=== PATIENT | female | born 1975 | race Caucasian/White ===

== ENCOUNTER 2018-04-15 12:05 | Emergency (ER) | payer OTHER, BC ==
[2018-04-15] MEDS ORDERED: Acetaminophen/HYDROcodone 325-5 MG Tab PO ONE (12:30)
--- NOTE | 2018-04-15 12:37 | EDM.PDOC ---
ED HPI GENERAL MEDICAL PROBLEM - General Chief Complaint: Upper Extremity Injury/Pain Stated Complaint: LT SHOULDER INJURY Time Seen by Provider: 04/15/18 12:21 Source of Information: Reports: Patient History Limitations: Reports: No Limitations - History of Present Illness INITIAL COMMENTS - FREE TEXT/NARRATIVE: Patient is a 42-year-old female presents ED complaining of left shoulder pain. Patient was at work at [employer] and fell after tripping on a pallet. Patient states she caught herself by falling on her elbows. In the process of falling she injured her left shoulder. Has limited range of motion secondary to pain. Pain is generalized. Patient feels more comfortable with holding her arm against her chest. There is no sensorimotor deficits distally. No prior injury to the left shoulder. Denies hitting her head, LOC, neck pain, back pain, or any additional complaints. She denies being . She has a history of migraines and is on propranolol and Effexor. Pain is currently a 10 out of 10 although the patient is on her phone texting. 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 ED EXAM, GENERAL - Physical Exam Exam: See Below Exam Limited By: No Limitations General Appearance: Alert, WD/WN, Mild Distress Eye Exam: Bilateral Eye: Normal Inspection, PERRL Ears: Hearing Grossly Normal Nose: Normal Inspection Throat/Mouth: Normal Voice, No Airway Compromise Head: Atraumatic, Normocephalic Neck: Normal Inspection, Supple, Non-Tender, Full Range of Motion Respiratory/Chest: No Respiratory Distress, Lungs Clear, Normal Breath Sounds, No Accessory Muscle Use, Chest Non-Tender Cardiovascular: Normal Peripheral Pulses, Regular Rate, Rhythm, No Murmur Peripheral Pulses: 4+: Radial (L) GI/Abdominal: Normal Bowel Sounds, Soft, Non-Tender, No Organomegaly, No Distention Back Exam: Normal Inspection, Full Range of Motion. No: Paraspinal Tenderness, Vertebral Tenderness Extremities: Normal Inspection, Arm Pain, Limited Range of Motion, Other (Point of maximal pain is located to the lateral aspect of the shoulder proximal 1/3. No bruising, swelling, bony abnormalities noted. Decreased AROM and PROM 2nd to pain. Exam limited due to pain. No pain with palpation of the left clavicle, a/ c joint, elbow, forearm, wrist, hand, and fingers. ) Neurological: Alert, Oriented, CN II-XII Intact, Normal Cognition, No Motor/ Sensory Deficits Psychiatric: Normal Affect, Normal Mood Skin Exam: Warm, Dry, Intact, Normal Color Course - Vital Signs Last Recorded V/S: Last Vital Signs Temp 98.1 F 04/15/18 12:29 Pulse 87 04/15/18 12:29 Resp 20 04/15/18 12:29 BP 136/90 04/15/18 12:29 Pulse Ox 100 04/15/18 12:29 - Orders/Labs/Meds Orders: Active Orders 24 hr Category Date Time Status Shoulder Comp Lt [CR] Stat Exams 04/15/18 12:30 Ordered Meds: Medications Discontinued Medications Generic Name Dose Route Start Last Admin Trade Name Freq PRN Reason Stop Dose Admin Hydrocodone Bitart/Acetaminophen 1 tab 04/15/18 12:30 04/15/18 12:35 [place] 325-5 Mg PO 04/15/18 12:31 1 tab ONETIME ONE Administration - Re-Assessments/Exams Free Text/Narrative Re-Assessment/Exam: Ordered norco 5-325 mg X1 PO. Ordered xray of the left shoulder. Suspect shoulder strain and/or possibility of rotator cuff injury. Thus if x-rays come back will immobilze and have patient followup with ortho for reevaluation. patient was made aware she will need to see occupational med provider for modification of job duties. X-ray of the left shoulder reviewed with Dr. Aviles with no acute bony abnormalities noted. Suspect cause of injury is either a shoulder strain and/or possible rotator cuff tear. Will place patient in a arm sling. Symptomatic care is appropriate including: ice, tylenol/motrin. She'll follow up with occupational med and/or occupational med for further evaluation. Departure - Departure Time of Disposition: 13:38 Disposition: Home, Self-Care 01 Condition: Good Clinical Impression: Strain of left shoulder Qualifiers: Encounter type: initial encounter Qualified Code(s): S46.912A - Strain of unspecified muscle, fascia and tendon at shoulder and upper arm level, left arm , initial encounter Rotator cuff injury Qualifiers: Encounter type: initial encounter Laterality: left Qualified Code(s): S46.002A - Unspecified injury of muscle(s) and tendon(s) of the rotator cuff of left shoulder, initial encounter - Discharge Information Instructions: Shoulder Pain, [id number], Muscle Strain Referrals: Ike Herzog PA-C [Primary Care Provider] - Forms: ED Department Discharge, ED Return to Work/School Form Additional Instructions: Wear the arm sling for the next 3 days. Take off to ice, bath, and sleep. Perform circular movements as demonstrated at least three times a day. Refrain from any activities that cause worsening pain. Apply ice to the affected area 3 to 4 times daily, 30 minutes in duration, do not apply directly on the skin. Take ibuprofen and tylenol as needed in alternating fashion for pain. See a occupational med provider for modification job duties. Suggest making an appt with orthopedic surgeon of your choice to be evaluated in 10 to 14 days if pain persists. Call and make an appt. No driving today since receiving a sedative medication. Return to the E.D. for any new or worsening symptoms. - My Orders Last 24 Hours: My Active Orders 04/15/18 12:30 Shoulder Comp Lt [CR] Stat - Assessment/Plan Last 24 Hours: My Active Orders 04/15/18 12:30 Shoulder Comp Lt [CR] Stat
--- NOTE | 2018-04-16 08:23 | CR ---
Left shoulder: Three views of the left shoulder were obtained. Comparison: No prior shoulder exam. Glenohumeral joint appears normal. Acromioclavicular joint appears normal. A lucent line is identified the base of the greater tuberosity. Difficult to exclude a nondisplaced fracture. No additional bony abnormality is seen. Impression: 1. Lucency at the base of the greater tuberosity. Difficult to exclude a nondisplaced fracture. CT study would confirm if clinically needed. Diagnostic code #3
== END 2018-04-15 13:50 | disposition home or self-care (01) ==
LOC: JD.ED 12:05
DX: S46.012A Strain of muscle(s) and tendon(s) of the rotator cuff of left shoulder, initial encounter (principal); Z79.899 Other long term (current) drug therapy; W01.198A Fall on same level from slipping, tripping and stumbling with subsequent striking against other object, initial encounter; Y99.0 Civilian activity done for income or pay
CPT/HCPCS: 73030; 99283; A9270

== ENCOUNTER 2020-03-11 10:40 | Emergency (ER) | payer BC, OTHER ==
[2020-03-11] MEDS ORDERED: Famotidine 20 MG Tab PO ONE (11:17)
[2020-03-11] MEDS ORDERED: predniSONE 20 MG Tab PO ONE (11:17)
--- NOTE | 2020-03-11 11:24 | EDM.PDOC ---
ED HPI GENERAL MEDICAL PROBLEM - General Chief Complaint: Allergic Reaction Stated Complaint: SKIN COMPLAINT (HIVES ON BODY,SWOLLEN FACE) Time Seen by Provider: 03/11/20 11:08 Source of Information: Reports: Patient History Limitations: Reports: No Limitations - History of Present Illness INITIAL COMMENTS - FREE TEXT/NARRATIVE: Patient is a 44-year-old female who presents with complaints of hives. She states yesterday she developed itching and welts on her forehead. Last night it spread out into her neck and chest. She has no shortness of breath or feeling of swelling in her throat. She has been taking Benadryl 25 mg with some relief. She has seasonal allergies, but has never had hives with them in the past. She has not changed cosmetics or detergents recently. 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 pt states she hasnt had a period in 13 months since 03/11 Neurological History: Reports: Migraines Psychiatric History: Reports: Anxiety, Depression Endocrine/Metabolic History: Reports: Osteopenia Social & Family History - Tobacco Use Smoking Status *Q: Never Smoker - Caffeine Use Caffeine Use: Reports: Coffee - Recreational Drug Use Recreational Drug Use: No ED ROS ALLERGIC REACTION - Review of Systems Review Of Systems: See Below Constitutional: Reports: No Symptoms. Denies: Fever, Chills HEENT: Reports: No Symptoms. Denies: Throat Pain, Throat Swelling Respiratory: Reports: No Symptoms. Denies: Shortness of Breath, Wheezing, Cough Cardiovascular: Reports: No Symptoms Endocrine: Reports: No Symptoms GI/Abdominal: Reports: No Symptoms : Reports: No Symptoms Musculoskeletal: Reports: No Symptoms Skin: Reports: Pruritis, Rash Neurological: Reports: No Symptoms Psychiatric: Reports: No Symptoms Hematologic/Lymphatic: Reports: No Symptoms Immunologic: Reports: No Symptoms ED EXAM GENERAL NO PERIP PULSE - Physical Exam Exam: See Below Exam Limited By: No Limitations General Appearance: Alert, WD/WN, No Apparent Distress Eye Exam: Bilateral Eye: Other (Mild edema of the upper eyelids) Respiratory/Chest: No Respiratory Distress, Lungs Clear, Normal Breath Sounds, No Accessory Muscle Use, Chest Non-Tender Cardiovascular: Normal Peripheral Pulses, Regular Rate, Rhythm, No Edema, No Gallop, No JVD, No Murmur, No Rub Skin Exam: Warm, Dry, Intact, Normal Color, Other (Very faint redness to forehead and cheeks. No obvious rash to neck or chest.) Lymphatic: No Adenopathy Course - Vital Signs Last Recorded V/S: Last Vital Signs Temp 97.6 F 03/11/20 10:48 Pulse 88 03/11/20 10:48 Resp 18 03/11/20 10:48 BP 133/86 03/11/20 10:48 Pulse Ox 97 03/11/20 10:48 - Orders/Labs/Meds Orders: Active Orders 24 hr Category Date Time Status Famotidine [Pepcid] Med 03/11/20 11:17 Once 20 mg PO ONETIME ONE predniSONE Med 03/11/20 11:17 Once 20 mg PO ONETIME ONE Departure - Departure Time of Disposition: 11:23 Disposition: Home, Self-Care 01 Condition: Good Clinical Impression: Rash due to allergy - Discharge Information *PRESCRIPTION DRUG MONITORING PROGRAM REVIEWED*: No *COPY OF PRESCRIPTION DRUG MONITORING REPORT IN PATIENT ROBBIE: No Prescriptions: predniSONE [Prednisone] 20 mg PO BID 5 Days #10 tablet Instructions: Hives, Allergies, Adult, [id number] Referrals: Ike Herzog PA-C [Primary Care Provider] - Additional Instructions: You were seen in the emergency department today for a rash to your face and neck. It is likely that you are having allergic reaction, however the source of this allergy is unknown. While in the ER, you received a dose of prednisone and Pepcid. A prescription for prednisone twice daily for 5 days has been sent to [place] [facility]. Take this medication as prescribed. In addition, I would recommend that you take Pepcid 20 mg twice daily for the next 5 days. Continue to use Benadryl 25 to 50 mg every 4-6 hours as needed for rash and itching. If you should experience any worsening symptoms such as a feeling of swelling or itching in your throat or difficulty breathing, please return to the emergency department. Sepsis Event Note - Evaluation Sepsis Screening Result: No Definite Risk - Focused Exam Vital Signs: Vital Signs Temp Pulse Resp BP Pulse Ox 03/11/20 10:48 97.6 F 88 18 133/86 97 Date Exam was Performed: 03/11/20 Time Exam was Performed: 11:18 - My Orders Last 24 Hours: My Active Orders 03/11/20 11:17 Famotidine [Pepcid] 20 mg PO ONETIME ONE predniSONE 20 mg PO ONETIME ONE - Assessment/Plan Last 24 Hours: My Active Orders 03/11/20 11:17 Famotidine [Pepcid] 20 mg PO ONETIME ONE predniSONE 20 mg PO ONETIME ONE
== END 2020-03-11 11:45 | disposition home or self-care (01) ==
LOC: JD.ED 10:40
DX: T78.40XA Allergy, unspecified, initial encounter (principal); G43.909 Migraine, unspecified, not intractable, without status migrainosus; F41.9 Anxiety disorder, unspecified; F32.9 Major depressive disorder, single episode, unspecified; Z79.899 Other long term (current) drug therapy
CPT/HCPCS: 99282; A9270; J7512; 99283

== ENCOUNTER 2021-09-08 14:27 | Emergency (ER) | payer BC, OTHER ==
--- NOTE | 2021-09-08 16:20 | CR ---
Addendum: Wrist exam was a right wrist and not a left wrist as stated in the below report. --- Addendum1 above dictated on [09/09/2021 13:28] by [Gordon Bonilla, Nelson Cobb] --- --- Addendum1 above signed on [09/09/2021 13:59] by [Gordon Bonilla, Nelson Cobb] --- --- Original report below dictated on [09/08/2021 16:10] by [Gordon Bonilla, Nelson Cobb] --- --- Original report below signed on [09/08/2021 16:17] by [Gordon Bonilla, Nelson Cobb] --- Left wrist: 3 views of the left wrist were obtained. Comparison: No prior wrist study is available. Comminuted distal radial fracture is noted. Articular extension is seen. There is displacement being seen of the carpal bones and hand following the anteriorly displaced fragment. Fracture is noted within the ulnar styloid process. Degenerative change is noted within the CMC joint of the thumb. Diffuse soft tissue swelling is noted. Impression: 1. Comminuted distal radial fracture with articular extension. Carpal bones follow an anteriorly displaced fragment. 2. Fracture within the ulnar styloid process. Soft tissue swelling. 3. Mild degenerative change. Diagnostic code #3 --- Addendum1 signed ---
[2021-09-08] MEDS ORDERED: HYDROmorphone 1 MG/ML Syringe IM ONE (16:21)
--- NOTE | 2021-09-08 16:49 | EDM.PDOC ---
ED HPI GENERAL MEDICAL PROBLEM - General Chief Complaint: Upper Extremity Injury/Pain Stated Complaint: ARM INJURY Time Seen by Provider: 09/08/21 15:40 Source of Information: Reports: Patient, RN Notes Reviewed History Limitations: Reports: No Limitations - History of Present Illness INITIAL COMMENTS - FREE TEXT/NARRATIVE: Patient is a 46-year-old female presenting to the emergency department with complaints of pain swelling to her right wrist. Patient reports that she tripped over a toy and landed on her wrist. She reports that she heard a crack and is having significant discomfort. She has had previous fracture to this wrist as a child. She has not taken anything for pain. Left Wrist Pain Score (Numeric/FACES): 10 - Related Data Allergies Allergy/AdvReac Type Severity Reaction Status Date / Time No Known Allergies Allergy Verified 09/08/21 15:32 Home Meds: Home Meds Propranolol [Inderal] 120 mg PO DAILY 04/15/18 [History] Venlafaxine [Effexor] 225 mg PO DAILY 04/15/18 [History] SUMAtriptan [Imitrex] 0 mg PO ASDIRECTED PRN 03/11/20 [History] predniSONE [Prednisone] 20 mg PO BID 5 Days #10 tablet 03/11/20 [Rx] Hydrocodone/Acetaminophen [Hydrocodone-Acetamin 5-325 mg] 1 each PO Q4H PRN #12 tablet 09/08/21 [Rx] Past Medical History Respiratory History: Reports: Asthma 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 pt states she hasnt had a period in 13 months since 03/11 Musculoskeletal History: Reports: Osteoporosis Other Musculoskeletal History: osteopenia, broke tibial plateau june 08 Neurological History: Reports: Migraines Psychiatric History: Reports: Anxiety, Depression Endocrine/Metabolic History: Reports: Osteopenia Social & Family History - Tobacco Use Tobacco Use Status *Q: Never Tobacco User - Caffeine Use Caffeine Use: Reports: Coffee - Recreational Drug Use Recreational Drug Use: No Review of Systems - Review of Systems Review Of Systems: Comprehensive ROS is negative, except as noted in HPI. ED EXAM, GENERAL - Physical Exam Exam: See Below General Appearance: Alert, WD/WN, No Apparent Distress Respiratory/Chest: No Respiratory Distress, Lungs Clear, Normal Breath Sounds, No Accessory Muscle Use, Chest Non-Tender Cardiovascular: Normal Peripheral Pulses, Regular Rate, Rhythm, No Edema, No Gallop, No JVD, No Murmur, No Rub Extremities: Other (Swelling and obvious deformity to the right wrist. CMS intact.) Neurological: Alert, Oriented, CN II-XII Intact, Normal Cognition, Normal Gait, Normal Reflexes, No Motor/Sensory Deficits Psychiatric: Normal Affect, Normal Mood ED TRAUMA EXTREMITY PROCEDURES - Splinting Right Upper Extremity Splint Site: right wrist Pre-Procedure NV Status: Normal Post-Procedure NV Status: Normal Splint Material: Fiberglass Splint Design: Volar Applied & Form Fitted By: Provider Provider Post-Splint Application NV Check: NV Status Normal Complications: No Course - Vital Signs Last Recorded V/S: Last Vital Signs Temp 98.8 F 09/08/21 15:28 Pulse 86 09/08/21 15:28 Resp 100 H 09/08/21 15:28 BP 138/98 H 09/08/21 15:28 Pulse Ox 100 09/08/21 15:28 - Orders/Labs/Meds Meds: Medications Discontinued Medications Generic Name Dose Route Start Last Admin Trade Name Zhanna PRN Reason Stop Dose Admin Hydromorphone HCl 1 mg 09/08/21 16:21 09/08/21 16:37 Hydromorphone 1 Mg/Ml Syringe IM 09/08/21 16:22 1 mg ONETIME ONE Administration - Re-Assessments/Exams Free Text/Narrative Re-Assessment/Exam: Patient is a 46-year-old female presenting to the emergency department with complaints of pain and swelling to her right wrist. Wrist x-ray was completed using standing order in triage and shows comminuted fracture of the distal radius as well as ulnar styloid fracture. There is obvious external deformity with no open areas to the right wrist. CMS is intact distal to the injury. Case was discussed with orthopedist, Dr. Mascorro. He recommend that we splint without reduction at this time as this will require surgical repair. She should follow-up with him in clinic. I have ordered Dilaudid 1 mg IV to be given prior to splinting. 09/08/21 17:04 Splint applied to right wrist extending past the elbow. See procedure notes. Patient tolerated well. I will send prescription for hydrocodone with Tylenol and send arm sling with patient. She should call Dr. Mascorro's office tomorrow to set up a follow-up visit. Discharge instructions as documented. Departure - Departure Time of Disposition: 17:06 Disposition: Home, Self-Care 01 Condition: Good Clinical Impression: Closed fracture of radius and ulna Qualifiers: Encounter type: initial encounter Laterality: right Qualified Code(s): S52.91XA - Unspecified fracture of right forearm, initial encounter for closed fracture - Discharge Information *PRESCRIPTION DRUG MONITORING PROGRAM REVIEWED*: No *COPY OF PRESCRIPTION DRUG MONITORING REPORT IN PATIENT ROBBIE: No Prescriptions: Hydrocodone/Acetaminophen [Hydrocodone-Acetamin 5-325 mg] 1 each PO Q4H PRN #12 tablet PRN Reason: Pain Instructions: Wrist Fracture Treated With Immobilization, [id number] Referrals: Ike Herzog PA-C [Primary Care Provider] - Darryl Mascorro MD [Physician] - Forms: ED Department Discharge Additional Instructions: Take [id number] Tylenol routinely for pain. For pain not relieved by this, you may take 1 hydrocodone with Tylenol. Ensure that you are not taking more than 4000 mg of Tylenol from all sources in a 24-hour period. Ice and elevate your extremity while at rest for the next few days. Wear the sling when you are up and moving. Call Dr. Mascorro's office tomorrow morning to set up a follow-up visit. Return to ER for any new or worsening symptoms of concern. Sepsis Event Note (ED) - Evaluation Sepsis Screening Result: No Definite Risk
== END 2021-09-08 17:19 | disposition home or self-care (01) ==
LOC: JD.ED 14:27
DX: S52.91XA Unspecified fracture of right forearm, initial encounter for closed fracture (principal); W01.0XXA Fall on same level from slipping, tripping and stumbling without subsequent striking against object, initial encounter
CPT/HCPCS: 29125; 73110; 96372; 99283; J1170

== ENCOUNTER 2021-09-17 10:20 | Day surgery (SDC) | payer BC, OTHER ==
[~2021-09-17 10:20] MED LIST: Lactated Ringers 1,000 ML IV SCH; Lidocaine 1%/Sod Bicarbonate in NS 8.4% 1 ML Syringe IDERM PRN; Sodium Chloride 0.9% 10 ML Syringe FLUSH PRN
--- NOTE | 2021-09-17 10:56 | PCM.PREANE ---
Preanesthetic Assessment - Procedure Proposed Procedure: Right ORIF right distal radius - Anesthesia/Transfusion/Family Hx Anesthesia History: Prior Anesthesia Without Reaction Family History of Anesthesia Reaction: No Transfusion History: No Prior Transfusion(s) Intubation History: Unknown - Review of Systems General: No Symptoms Pulmonary: No Symptoms Cardiovascular: No Symptoms Gastrointestinal: No Symptoms Neurological: Headache (Migraines), Tingling (bilateral fingers) Other: Reports: Easy Bruising, Depression, Anxiety - Physical Assessment NPO Status Date: 09/16/21 NPO Status Time: 22:00 Vital Signs: BP 119/89 HR 88 97.4 RR 16 95% RA Height: 1.65 m Weight: 85.3 kg ASA Class: 2 Mental Status: Alert & Oriented x3 Airway Class: Mallampati = 2 Dentition: Reports: Normal Dentition, Caries Thyro-Mental Finger Breadths: 3 Mouth Opening Finger Breadths: 3 ROM/Head Extension: Full Lungs: Clear to Auscultation, Normal Respiratory Effort Cardiovascular: Regular Rate, Regular Rhythm, No Murmurs - Allergies Allergies/Adverse Reactions: Allergies Allergy/AdvReac Type Severity Reaction Status Date / Time No Known Allergies Allergy Verified 09/08/21 15:32 - Anesthesia Plan Beta Paul: Propranolol (Patient takes for migraines) Med Last Dose Date: 09/16/21 Med Last Dose Time: 07:30 - Acknowledgements Anesthesia Type Planned: General Anesthesia Pt an Appropriate Candidate for the Planned Anesthesia: Yes Alternatives and Risks of Anesthesia Discussed w Pt/Guardian: Yes Pt/Guardian Understands and Agrees with Anesthesia Plan: Yes PreAnesthesia Questionnaire HEENT History: Reports: Allergic Rhinitis, Impaired Vision Cardiovascular History: Reports: None Respiratory History: Reports: Asthma (Childhood asthma, patient has not had any issues since childhood) Gastrointestinal History: Reports: None Genitourinary History: Reports: None 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 pt states she hasnt had a period in 13 months since 03/11 Musculoskeletal History: Reports: Osteoporosis Other Musculoskeletal History: osteopenia, broke tibial plateau june 08 Neurological History: Reports: Migraines Psychiatric History: Reports: Anxiety, Depression Endocrine/Metabolic History: Reports: Osteopenia, Osteoporosis Hematologic History: Reports: None Immunologic History: Reports: None Oncologic (Cancer) History: Reports: None Dermatologic History: Reports: None - Past Surgical History Female Surgical History: Reports: Other (See Below) (Uterine ablation) - SUBSTANCE USE Tobacco Use Status *Q: Never Tobacco User Tobacco Use Within Last Twelve Months: No Second Hand Smoke Exposure: No Days Per Week of Alcohol Use: 0 Number of Drinks Per Day: 0 Total Drinks Per Week: 0 Recreational Drug Use History: No - HOME MEDS Home Medications: Home Meds Propranolol [Inderal] 120 mg PO DAILY 04/15/18 [History] Venlafaxine [Effexor] 225 mg PO DAILY 04/15/18 [History] SUMAtriptan [Imitrex] 0 mg PO ASDIRECTED PRN 03/11/20 [History] predniSONE [Prednisone] 20 mg PO BID 5 Days #10 tablet 03/11/20 [Rx] Hydrocodone/Acetaminophen [HYDROcodone-Acetaminophen 5-325 MG] 1 each PO Q4H PRN #12 tablet 09/08/21 [Rx] Hydrocodone/Acetaminophen [HYDROcodone-Acetaminophen 5-325 MG] 1 - 2 each PO Q4H PRN #30 tablet 09/17/21 [Rx] - CURRENT (IN HOUSE) MEDS Current Meds: Current Medications Discontinued Medications Lactated Ringer's (Ringers, Lactated) 1,000 mls @ 125 mls/hr IV ASDIRECTED OH Lidocaine/Sodium Bicarbonate (Lidocaine 1%/Sod Bicarbonate In Ns 8.4% 1 Ml Syringe) 0.25 ml IDERM ONETIME PRN PRN Reason: Prior to IV Start Sodium Chloride (Sodium Chloride 0.9% 10 Ml Syringe) 10 ml FLUSH ASDIRECTED PRN PRN Reason: Keep Vein Open
[2021-09-17] MEDS: Lactated Ringers 1,000 ML IV SCH ×2 (11:00→14:24)
[2021-09-17] MEDS ORDERED: Bupivacaine 0.25% 10 ML SDV ONE (11:11)
[2021-09-17] MEDS ORDERED: fentaNYL 250 MCG/5 ML SDV ONE (11:22)
[2021-09-17] MEDS ORDERED: Propofol 200 MG/20 ML SDV ONE ×3 (11:22→12:09)
[2021-09-17] MEDS ORDERED: Midazolam 1 MG/ML 2 ML SDV ONE (11:22)
[2021-09-17] MEDS ORDERED: ceFAZolin 1 GM Vial ONE (11:24)
[2021-09-17] MEDS ORDERED: Sodium Chloride 0.9% 10 ML Syringe FLUSH PRN (11:25)
[2021-09-17] MEDS ORDERED: Lidocaine 1%/Sod Bicarbonate in NS 8.4% 1 ML Syringe IDERM PRN (11:25)
[2021-09-17] MEDS ORDERED: Dexamethasone 4 MG/ML 5 ML MDV ONE (12:10)
[2021-09-17] MEDS ORDERED: fentaNYL 100 MCG/2 ML SDV IVPUSH PRN (12:25)
[2021-09-17] MEDS ORDERED: Ondansetron 4 MG/2 ML SDV IVPUSH PRN (12:25)
[2021-09-17] MEDS ORDERED: Ketamine 500 mg/10 ML MDV ONE (12:27)
[2021-09-17] MEDS ORDERED: HYDROmorphone 0.5 MG/0.5 ML Syringe ONE (12:30)
[2021-09-17] MEDS ORDERED: Lactated Ringers 1,000 ML ONE (12:38)
[2021-09-17] MEDS ORDERED: Ondansetron 4 MG/2 ML SDV ONE (13:15)
--- NOTE | 2021-09-17 13:44 | PCM.POSTAN ---
POST ANESTHESIA ASSESSMENT - MENTAL STATUS Mental Status: Somnolent - VITAL SIGNS Vital Signs: Last Vital Signs Temp 97.3 F 09/17/21 10:30 Pulse 88 09/17/21 10:30 Resp 16 09/17/21 10:30 BP 119/89 09/17/21 10:30 Pulse Ox 95 09/17/21 10:30 1338 93 10 98.3 135/75 97% - RESPIRATORY Respiratory Status: Respiratory Rate WNL, Airway Patent, O2 Saturation Stable, Supplemental Oxygen - CARDIOVASCULAR CV Status: Pulse Rate WNL - GASTROINTESTINAL GI Status: No Symptoms - PAIN Pain Score: 5 (moans- medicated) - POST OP HYDRATION Hydration Status: Adequate & Stable
[2021-09-17] MEDS ORDERED: Acetaminophen/HYDROcodone 325-5 MG Tab PO PRN (13:53)
[2021-09-17] MEDS: HYDROmorphone 0.5 MG/0.5 ML Syringe IVPUSH PRN ×2 (13:58→14:24)
--- NOTE | 2021-09-17 14:41 | PCM48HPAN ---
Post Anesthesia Note - EVALUATION WITHIN 48HRS OF ANESTHETIC Vital Signs in Normal Range: Yes Patient Participated in Evaluation: Yes Respiratory Function Stable: Yes Airway Patent: Yes Cardiovascular Function Stable: Yes Hydration Status Stable: Yes Pain Control Satisfactory: Yes Nausea and Vomiting Control Satisfactory: Yes Mental Status Recovered: Yes Vital Signs: Last Vital Signs Temp 98.1 F 09/17/21 14:15 Pulse 88 09/17/21 10:30 Resp 11 L 09/17/21 14:30 BP 137/88 09/17/21 14:30 Pulse Ox 99 09/17/21 14:30 - COMMENTS/OBSERVATIONS Free Text/Narrative:: pain is better now. sitting up in bed
--- NOTE | 2021-09-18 08:44 | CR ---
Right wrist: 6 fluoroscopic spot views utilizing C-arm device was obtained of the right wrist in the operating room. Study shows placement of plate and screws within the distal radius affixing previous distal radial fracture. Fracture is also seen within the ulnar styloid process. Fluoroscopy time is given as 109.2 seconds. Impression: 1. Procedural study as noted above. Diagnostic code #2 I agree with preliminary report from [facility], finalized on 09/17/21, 3:07 PM CDT, code 1
--- NOTE | 2021-10-03 17:49 | PCM.OPNOTE ---
- General Post-Op/Procedure Note Date of Surgery/Procedure: 09/17/21 Operative Procedure(s): open reduction internal fixation right comminuted distal radius fracture Pre Op Diagnosis: comminuted intraarticular right distal radius fracture with ulnar styloid fracture Post-Op Diagnosis: Same Anesthesia Technique: General LMA, Local Primary Surgeon: Darryl Mascorro Anesthesia Provider: Charity Sood Ultrasonic Seaming Machine Operator: Farrah Louis EBL in mLs: 5 Complications: None Condition: Good
--- NOTE | 2021-10-03 18:15 | OR ---
DATE OF OPERATION: 09/17/2021 SURGEON: Darryl Mascorro MD OPERATION PERFORMED: Open reduction, internal fixation of right comminuted intra-articular distal radius fracture. PREOPERATIVE DIAGNOSIS: Comminuted intra-articular right distal radius fracture with ulnar styloid fracture. POSTOPERATIVE DIAGNOSIS: Comminuted intra-articular right distal radius fracture with ulnar styloid fracture. ANESTHESIA: General LMA with local. ANESTHESIA PROVIDER: Charity Sood CRNA. HAIRSPRING TRUER: Farrah Louis PA-C. ESTIMATED BLOOD LOSS: 5 mL. COMPLICATIONS: None. CONDITION: Stable. DESCRIPTION OF PROCEDURE: The patient was identified in the preoperative holding area. Proper site was marked and identified by the surgeon. The patient was taken back to the operative theater where after adequate anesthesia, the patient had a nonsterile tourniquet applied to the right upper extremity. Right upper extremity was then sterilely prepped and draped in the usual sterile fashion. OR time-out was performed. Patient received 2 g IV Ancef. Right upper extremity was exsanguinated. Tourniquet was insufflated to 200 mmHg. A standard volar approach of [place] was used down to the FCR tendon sheath. This was then opened. FCR tendon was retracted to protect the median nerve. Floor of the sheath was then opened. The patient was noted to have a lot of soft . The pronator quadratus was then lifted off the distal radius. The patient was noted to have severe comminution. I did irrigate through the fracture site. At this time, a closed reduction maneuver was undertaken. It was noted to be very unstable. I was able to place a [place] volar locking plate intermediate on the distal radial under C-arm fluoroscopy in proper position. It was then affixed with K-wires. I was able to put a cortical screw to affix the plate. It did show near-sikh of the radial height as well as volar inclination and tilt. There was a very small rim fracture that was unable to be accounted for secondary to the severe comminuted nature of the volar rim, but I was able to buttress it up against the plate. At this time, the radial styloid was only going to have 1 screw in it, so I did end up doing a K-wire in the radial styloid as well to give it 2 points of fixation. I placed 4 locking screws distally including 1 in the radial styloid fragment while holding the reduction, but again, it was a very comminuted fracture with a lot of fragments. I then placed 2 more cortical screws in the shaft. I then found that the volar rim was unstable, so I placed another K-wire under direct fluoroscopy making sure it was not in the joint line and then actually cut the wire next to the plate to act as almost another screw for fixation after I made sure that the K-wire was very secure. AP, lateral, and 23-degree lateral view shows all screws out and near- anatomic reduction of the joint line, but secondary to the severe comminution, the patient did have that very unstable volar rim. I did do fluoroscopy under fluoro showing that with movement of the carpus, the fracture site was not unstable. The DRUJ was then checked in supination and pronation and was found to be stable. Adequate saline was irrigated through the wound. 3-0 Vicryl was used subcutaneously. Monocryl was used for closure of the skin. The patient had a sterile soft dressing applied and a volar slab splint and was sent to PACU in stable condition. MMODAL /[id number]
== END 2021-09-17 16:18 | disposition home or self-care (01) ==
LOC: JD.SDS 10:20
PROVIDERS: ATTEND Orthopaedic Surgery
DX: S52.571A Other intraarticular fracture of lower end of right radius, initial encounter for closed fracture (principal); J45.909 Unspecified asthma, uncomplicated; S52.611A Displaced fracture of right ulna styloid process, initial encounter for closed fracture; Z79.899 Other long term (current) drug therapy
CPT/HCPCS: 25608; 76000; A9270; C1713; C1769; C1776; J0690; J1100; J1170; J2250; J2405; J2704; J3010; J3490; J7120; 01830